=== PATIENT | male | born 1945 | race Caucasian/White ===

== ENCOUNTER 2017-06-02 19:58 | Emergency (ER) | payer OTHER, MEDICARE ==
[2017-06-02] MEDS ORDERED: Sodium Chloride 0.9% 10 ML Syringe FLUSH PRN (20:04)
--- NOTE | 2017-06-02 20:05 | EDM.PDOC ---
ED HPI GENERAL MEDICAL PROBLEM - General Chief Complaint: Respiratory Problem Stated Complaint: Cough; Chest discomfort; SOB Time Seen by Provider: 06/02/17 20:02 Source of Information: Reports: Patient, Family, RN, RN Notes Reviewed History Limitations: Reports: No Limitations - History of Present Illness INITIAL COMMENTS - FREE TEXT/NARRATIVE: Patient presents to the emergency room at [facility] complaining of shortness of breath, chest discomfort, and cough. The patient states he has had the symptoms for about the last 4 days. The patient states that he is coughing up white phlegm. The patient states that it hurts to take in a deep breath. The patient states it hurts to cough. The patient denies any dizziness. Patient denies any headache. No focal neurological deficit. The patient denies any nausea vomiting or diarrhea. The patient states he feels very fatigued. He has some weakness. The patient has been not drinking enough water. The patient has been around grandchildren that have been sick with similar symptoms. Onset Date: 05/29/17 upper chest Pain Score (Numeric/FACES): 5 - Related Data Allergies Allergy/AdvReac Type Severity Reaction Status Date / Time No Known Allergies Allergy Verified 06/02/17 20:20 ED ROS GENERAL - Review of Systems Review Of Systems: See Below Constitutional: Reports: Weakness, Fatigue. Denies: Fever, Chills HEENT: Reports: No Symptoms Respiratory: Reports: Shortness of Breath, Pleuritic Chest Pain, Cough, Sputum Cardiovascular: Reports: Chest Pain. Denies: Lightheadedness, Palpitations GI/Abdominal: Denies: Abdominal Pain, Nausea, Vomiting Skin: Reports: No Symptoms Neurological: Reports: No Symptoms. Denies: Dizziness, Headache, Numbness, Paresthesia, Tingling ED EXAM, GENERAL - Physical Exam Exam: See Below Exam Limited By: No Limitations General Appearance: Alert, No Apparent Distress, Obese Eye Exam: Bilateral Eye: Normal Inspection, PERRL Ears: Normal External Exam, Normal Canal, Normal TMs Ear Exam: Bilateral Ear: TM normal Nose: Normal Inspection Throat/Mouth: Normal Inspection, Normal Oropharynx, No Airway Compromise Neck: Supple Respiratory/Chest: No Respiratory Distress, Decreased Breath Sounds Cardiovascular: Normal Peripheral Pulses, Regular Rate, Rhythm Peripheral Pulses: 2+: Radial (L), Radial (R) GI/Abdominal: Normal Bowel Sounds, Soft, Non-Tender Neurological: Alert, Oriented Skin Exam: Warm, Dry, Intact, Normal Color, No Rash EKG INTERPRETATION EKG Date: 06/02/17 Time: 20:50 Rhythm: NSR Rate (Beats/Min): 88 [place]: Normal P-Wave: Present QRS: Normal ST-T: Normal QT: Normal VA/PQ Interval: 0.15 Comparison: NA - No Prior EKG EKG Interpretation Comments: 1. Sinus Rhythm 2. Minimal voltage criteria for LVH, consider normal variant 3. nonspecific T-wave abnormality Course - Vital Signs Last Recorded V/S: Last Vital Signs Temp 35.7 C 06/02/17 20:00 Pulse 118 H 06/02/17 20:00 Resp 24 H 06/02/17 20:00 BP 125/86 06/02/17 20:00 Pulse Ox 98 06/02/17 20:00 - Orders/Labs/Meds Orders: Active Orders 24 hr Category Date Time Status EKG 12 Lead [EKG Documentation Completion] [RC] STAT Care 06/02/17 20:04 Active Chest 2V [CR] Stat Exams 06/02/17 20:02 Taken UA W/MICROSCOPIC [URIN] Stat Lab 06/02/17 20:04 Uncollected Azithromycin [Zithromax] 500 mg Med 06/02/17 21:47 Ordered Sodium Chloride 0.9% [Normal Saline] 250 ml IV ONETIME Sodium Chloride 0.9% [Saline Flush] Med 06/02/17 20:04 Active 10 ml FLUSH ASDIRECTED PRN Peripheral IV Insertion Adult [OM.PC] Routine Oth 06/02/17 20:04 Ordered Medication Orders Azithromycin 500 mg/ Sodium (Chloride) 250 mls @ 250 mls/hr IV ONETIME ONE Stop: 06/02/17 22:46 Sodium Chloride (Saline Flush) 10 ml FLUSH ASDIRECTED PRN PRN Reason: Keep Vein Open Labs: Laboratory Tests 06/02/17 06/02/17 06/02/17 Range/Units 20:45 20:45 20:45 WBC 5.8 (4.0-10.0) x10^3/uL RBC 4.77 (4.5-6.0) x10^6/uL Hgb 14.8 (14.0-18.0) g/dL Hct 41.7 (40.0-52.0) % MCV 87.4 (78.0-93.0) fL MCH 31.0 (26.0-32.0) pg MCHC 35.5 (32.0-36.0) g/dL RDW Coeff of Gissell 13.7 (10.0-15.0) % Plt Count 156 (130-400) x10^3/uL Add Manual Diff Yes Neutrophils % (Manual) 59 (50-80) % Band Neutrophils % 5 (0-6) % Lymphocytes % (Manual) 18 L (25-50) % Atypical Lymphs % 6 H (0) % Monocytes % (Manual) 11 (2-11) % Eosinophils % (Manual) 1 (0-4) % Smudge Cells Rare H Platelet Estimate Adequate Polychromasia Rare Sodium 135 L (136-145) mmol/L Potassium 3.6 (3.5-5.1) mmol/L Chloride 98 (98-107) mmol/L Carbon Dioxide 18 L (21-32) mmol/L BUN 23 H (7-18) mg/dL Creatinine 1.8 H (0.70-1.30) mg/dL Est Cr Clr Drug Dosing 32.74 mL/min Estimated GFR (MDRD) 37 Glucose 308 H (74-106) mg/dL Lactic Acid 3.0 H* (0.4-2.0) mmol/L Calcium 8.5 (8.5-10.1) mg/dL Creatine Kinase 144 (39-308) U/L Creatine Kinase Index 0.5 (0.0-4.0) % CK-MB (CK-2) 0.7 (0.0-3.6) ng/mL Troponin I < 0.017 (<=0.056) ng/mL C-Reactive Protein 2.8 H (<=0.9) mg/dL NT-Pro-B Natriuret Pep 58 (<=125) pg/mL Meds: Medications Generic Name Dose Route Start Last Admin Trade Name Freq PRN Reason Stop Dose Admin Azithromycin 500 mg/ Sodium 250 mls @ 250 mls/hr 06/02/17 21:47 Chloride IV 06/02/17 22:46 ONETIME ONE Sodium Chloride 10 ml 06/02/17 20:04 Saline Flush FLUSH ASDIRECTED PRN Keep Vein Open Discontinued Medications Generic Name Dose Route Start Last Admin Trade Name Freq PRN Reason Stop Dose Admin Sodium Chloride 1,000 mls @ 999 mls/hr 06/02/17 20:14 Normal Saline IV 06/02/17 21:14 ONETIME ONE - Radiology Interpretation Free Text/Narrative:: CXR: Very mild patchy opacities within the right mid lung could be infectious in etiology See scanned report in EMR Departure - Departure Time of Disposition: 22:00 Disposition: DC/Tfer to [facility] Condition: Good Clinical Impression: Dehydration Pneumonia Qualifiers: Pneumonia type: due to unspecified organism Laterality: right Lung location: middle lobe of lung Qualified Code(s): J18.1 - Lobar pneumonia, unspecified organism Acute renal failure Qualifiers: Acute renal failure type: unspecified Qualified Code(s): N17.9 - Acute kidney failure, unspecified - Discharge Information Forms: Interfacility Transfer [facility] ED Communication - ED Communication Date/Time Date: 06/02/17 Time Called: 21:32 - Discussed Case With (1) Discussed Case With (1): Admitting Provider (Dr. Ferguson, Hospitalist [facility].) - Conversation Summary Admitting Provider Agreed to Patient's Admission: Yes Patient Aware of Amendments fo Care Plan: Yes Summary Comment: Patient will be admitted to the [facility]. Accepting provider Dr. Ferguson. Report given. Patient will be sent via ALS ground. - Problem List Review Problem List Initiated/Reviewed/Updated: Yes - My Orders Last 24 Hours: My Active Orders 06/02/17 20:02 Chest 2V [CR] Stat 06/02/17 20:04 EKG 12 Lead [EKG Documentation Completion] [RC] STAT UA W/MICROSCOPIC [URIN] Stat Sodium Chloride 0.9% [Saline Flush] 10 ml FLUSH ASDIRECTED PRN Peripheral IV Insertion Adult [OM.PC] Routine 06/02/17 21:47 Azithromycin [Zithromax] 500 mg Sodium Chloride 0.9% [Normal Saline] 250 ml IV ONETIME - Assessment/Plan Last 24 Hours: My Active Orders 06/02/17 20:02 Chest 2V [CR] Stat 06/02/17 20:04 EKG 12 Lead [EKG Documentation Completion] [RC] STAT UA W/MICROSCOPIC [URIN] Stat Sodium Chloride 0.9% [Saline Flush] 10 ml FLUSH ASDIRECTED PRN Peripheral IV Insertion Adult [OM.PC] Routine 06/02/17 21:47 Azithromycin [Zithromax] 500 mg Sodium Chloride 0.9% [Normal Saline] 250 ml IV ONETIME Plan: The patient will be transferred to the [facility]. Case was discussed with Dr. Ferguson, who accepted this patient in transfer. Report given. All questions answered. The patient did not initially present as a septic workup despite having tachycardia and an elevated respiratory rate. Clinically the patient was stable and did not require immediate antibiotics until further laboratory and x-ray results were available. Antibiotics were started prior to discharge.
[2017-06-02] MEDS ORDERED: Sodium Chloride 0.9% 1,000 ML IV ONE (20:14)
[2017-06-02 21:27] LABS: CHLORIDE,CL 98 mmol/L (98-107); SODIUM,NA 135 mmol/L (136-145)
[2017-06-02] MEDS ORDERED: Azithromycin 500 MG in Sodium Chloride 0.9% 250 ML IV ONE (21:47)
== END 2017-06-02 23:26 ==
LOC: VM.ED 19:58
DX: J18.9 Pneumonia, unspecified organism (principal); N17.9 Acute kidney failure, unspecified; E86.0 Dehydration
CPT/HCPCS: 36415; 71046; 80048; 82550; 82553; 83605; 83880; 84484; 85025; 86140; 87804; 93005; 96361; 96365; 99284-GF; 99285; J0456; J7030; J7050